=== PATIENT | male | born 1950 | race Caucasian/White ===

== ENCOUNTER 2019-08-02 00:35 | Emergency (ER) | payer MEDICARE, MEDICAID ==
[2019-08-02 00:56] LABS: ABSOLUTE BASOPHILS # (AUTO) 0.1 10^3/uL (0.0-0.2); ABSOLUTE EOSINOPHILS # (AUTO) 0.2 10^3/uL (0.0-0.6); ABSOLUTE LYMPHOCYTES (AUTO) 1.4 10^3/uL (0.5-4.7); ABSOLUTE MONOCYTES (AUTO) 0.6 10^3/uL (0.1-1.4); ABSOLUTE NEUT (AUTO) 3.3 10^3/uL (1.7-8.2); EOSINOPHILS % (AUTO) 3.2 % (0-6); HEMATOCRIT 37.3 % (37.9-51.0); HEMOGLOBIN 12.3 g/dL (13.5-17.0); MEAN CORPUSCULAR HEMOGLOBIN 30.6 pg (27.0-33.4); MEAN CORPUSCULAR HGB CONC 33.1 g/dL (32.0-36.0); MEAN CORPUSCULAR VOLUME 93 fl (80-97); MONOCYTES % (AUTO) 10.3 % (3-13); PLATELET COUNT 196 10^3/uL (150-450); RED BLOOD COUNT 4.03 10^6/uL (4.35-5.55); RED CELL DISTRIBUTION WIDTH 15.6 % (11.5-14.0); SEGMENTED NEUTROPHILS % (AUTO) 60.5 % (42-78); TOTAL CELLS COUNTED % (AUTO) 100 %; WHITE BLOOD COUNT 5.5 10^3/uL (4.0-10.5)
[2019-08-02 01:23] LABS: ALBUMIN 4.4 g/dL (3.5-5.0); ALKALINE PHOSPHATASE 76 U/L (38-126); ANION GAP 6 (5-19); ASPARTATE AMINO TRANSFERASE 25 U/L (17-59); BILIRUBIN,DIRECT 0.3 mg/dL (0.0-0.4); BILIRUBIN,TOTAL 0.6 mg/dL (0.2-1.3); BLOOD UREA NITROGEN 21 mg/dL (7-20); CALCIUM 9.4 mg/dL (8.4-10.2); CARBON DIOXIDE 31 mmol/L (22-30); CHLORIDE 106 mmol/L (98-107); CREATINE KINASE 61 U/L (55-170); GLUCOSE 94 mg/dL (75-110); POTASSIUM 4.4 mmol/L (3.6-5.0); TOTAL PROTEIN 8.2 g/dL (6.3-8.2)
[2019-08-02 01:35] LABS: CREATINE KINASE MB 1.09 ng/mL (<4.55); TROPONIN I 0.017 ng/mL
[2019-08-02] MEDS ORDERED: IPRATROPIUM/ALBUTEROL 0.5-2.5 MG/3 ML AMPUL NEB ONE (01:46)
--- NOTE | 2019-08-02 01:51 | ER Document Report ---
ED General - General Chief Complaint: Shortness Of Breath Stated Complaint: DIFFICULTY BREATHING Time Seen by Provider: 08/02/19 01:17 Primary Care Provider: MARK CARR [CONVERSION] - Follow up as needed Mode of Arrival: Ambulatory Information source: Patient TRAVEL OUTSIDE OF THE [place] IN LAST 30 DAYS: No - HPI Onset: Other - over the last few days Onset/Duration: Gradual Quality of pain: Sharp Severity: Moderate Pain Level: 3 Associated symptoms: Shortness of breath, Other - palpitations, sharp pain in back off and on Exacerbated by: Denies Relieved by: Denies Similar symptoms previously: Yes - when his AFib acts up Recently seen / treated by doctor: No Notes: 69 year old male with a history of AFib on Eliquis, HTN, HLD. Left Leg Vascular Surgery (patient cannot tell me exactly what was done) here for several days of chest pains, back pains, cough, and shortness of breath. The patient denies fevers, chills, sweats, nausea, vomiting, radiation of chest pain. The patient says he can feel his heart racing at times. The patient is not the best historian but his sister is with him and she seems to know his medical issues and recent complaints fairly well. - Related Data Allergies/Adverse Reactions: No Known Allergies Allergy (Unverified 08/02/19 01:24) Home Medications: Melatonin. Lisinopril-HCTZ. Eliquis. Aspirin Past Medical History - Social History Smoking Status: Former Smoker Frequency of alcohol use: None Drug Abuse: None Lives with: Alone Family History: Reviewed & Not Pertinent Patient has suicidal ideation: No Patient has homicidal ideation: No - Past Medical History Cardiac Medical History: Reports: Hx Atrial Fibrillation, Hx Hypercholesterolemia, Hx Hypertension Review of Systems - Review of Systems Constitutional: No symptoms reported EENT: No symptoms reported Cardiovascular: Chest pain, Palpitations Respiratory: Cough, Short of breath Gastrointestinal: No symptoms reported Genitourinary: No symptoms reported Male Genitourinary: No symptoms reported Musculoskeletal: No symptoms reported Skin: No symptoms reported Hematologic/Lymphatic: No symptoms reported Neurological/Psychological: No symptoms reported Physical Exam - Vital signs Vitals: Resp Pulse Ox 23 H 91 L 08/02/19 00:40 08/02/19 00:40 - Notes Notes: GENERAL: Well-appearing, well-nourished and in no acute distress. HEAD: Atraumatic, normocephalic. EYES: Pupils equal round and reactive to light, extraocular movements intact, sclera anicteric, conjunctiva are normal. ENT: TMs normal, nares patent, oropharynx clear without exudates. Moist mucous membranes. NECK: Normal range of motion, supple without lymphadenopathy or JVD. LUNGS: Breath sounds clear to auscultation bilaterally and equal except for mild expiratory wheezes. No rales or rhonchi. HEART: Regular rate, Irregular rhythm without murmurs, rubs or gallops. ABDOMEN: Soft, nontender, normoactive bowel sounds. No guarding, no rebound. No masses appreciated. EXTREMITIES: Normal range of motion, no pitting or edema. No clubbing or cyanosis. NEUROLOGICAL: Cranial nerves II through XII grossly intact. Normal speech, normal gait. PSYCH: Normal mood, normal affect. SKIN: Warm, Dry, normal turgor, no rashes or lesions noted. Course - Re-evaluation Re-evalutation: 08/02/19 04:39 The patient is here for several days of off and on chest pains, shortness of breath, and palpitations. The patient has a history of AFib and he is on Metoprolol and Eliquis. Patient was not tachycardic and had no AFib with RVR here in the ER but it is possible he has been experiencing this at home. The patient had 2 negative, non-rising Troponins in the ER and his Chest Xrays showe d no acute process. Patient's BNP is in the 2000s with no priors for comparison. It is possible he has new onset CHF but he has no Oxygen requirement. Patient has edema of his legs (worse in left than right but this is apparently baseline since a left leg vascular surgery). Patient was given a dose of Lasix 20mg IV in the ER and he was DCed with a script for 5 days of Lasix 20mg. Patient told to follow up with his PCP and [facility] in the next few days. Patient thinks he has had a recent echo and stress test but he was told he needs to confirm this and he was told he needs to have these done if he has not had them recently. - Vital Signs Vital signs: Temp Pulse Resp BP Pulse Ox 99.0 F 22 H 159/104 H 95 08/02/19 00:41 08/02/19 03:08 08/02/19 03:08 08/02/19 03:08 - Laboratory Result Diagrams: 08/02/19 00:45 08/02/19 00:45 Laboratory results interpreted by me: 08/02/19 08/02/19 08/02/19 00:45 00:45 00:45 RBC 4.03 L Hgb 12.3 L Hct 37.3 L RDW 15.6 H Carbon Dioxide 31 H BUN 21 H Creatinine 1.46 H Est GFR ( Amer) 58 L Est GFR (MDRD) Non-Af 48 L NT-Pro-B Natriuret Pep 2420 H Discharge - Discharge Clinical Impression: Chest pain Qualifiers: Chest pain type: unspecified Qualified Code(s): R07.9 - Chest pain, unspecified Atrial fibrillation Qualifiers: Atrial fibrillation type: unspecified persistent Qualified Code(s): I48.19 - Other persistent atrial fibrillation Heart failure Qualifiers: Heart failure type: unspecified Heart failure chronicity: unspecified Qualified Code(s): I50.9 - Heart failure, unspecified Condition: Stable Disposition: HOME, SELF-CARE Instructions: Atrial Fibrillation ([facility]), Congestive Heart Failure ([facility]), Chest Pain of Unclear Cause ([facility]) Additional Instructions: Follow up with your primary care doctor and your [facility] and tell them about your ER visit for chest pain and shortness of breath. Your blood work showed your BNP was elevated at 2420 when the upper limit of normal is 125. Take 5 days of Lasix 20mg to help urinate off excess fluid but make sure you tell your doctors you were given the Lasix for 5 days. You should have an outpatient Cardiac Stress Test and outpatient Echocardiogram if you have not had them recently. Prescriptions: Furosemide [Lasix 20 mg Tablet] 20 mg PO DAILY 5 Days #5 tablet Referrals: CONVERSION,MAP [CONVERSION] - Follow up as needed
[2019-08-02] MEDS ORDERED: FUROSEMIDE INJ/PF 20 MG/2 ML SDV IV ONE (02:51)
--- NOTE | 2019-08-02 03:20 | RADIOLOGY REPORT (SQ) ---
EXAM DESCRIPTION: [facility]: XR CHEST 2 VIEWS Views: 2 CLINICAL HISTORY: 69 years Male, chest pain COMPARISON: None. FINDINGS: The lungs are clear. No pneumothorax or significant pleural effusion. Cardiomediastinal silhouette is within normal limits. Bony structures are unremarkable for age. IMPRESSION: 1. No acute cardiothoracic abnormality.
[2019-08-02 04:53] VITALS: BP 167/101
--- NOTE | 2019-08-02 11:19 | EKG REPORT ---
SEVERITY:- ABNORMAL ECG - ATRIAL FIBRILLATION, V-RATE [id number] PROLONGED QT INTERVAL : Confirmed by: Jad Hernandez 02-Aug-2019 11:18:51
== END 2019-08-02 04:53 | disposition home or self-care (01) ==
LOC: ER 00:35
DX: I50.9 Heart failure, unspecified (principal); I11.0 Hypertensive heart disease with heart failure; I48.19 Other persistent atrial fibrillation; R07.9 Chest pain, unspecified; R06.02 Shortness of breath; R00.2 Palpitations; I48.91 Unspecified atrial fibrillation; M54.9 Dorsalgia, unspecified; R05 Cough; Z87.891 Personal history of nicotine dependence
CPT/HCPCS: 93005; 94640; 99285; 96374; 36415; 82553; 82550; 85025; 80053; 84484; 83880; 71046; 93010; J1940; A9270; J7620